=== PATIENT | female | born 2000 | race African-American/Black ===

== ENCOUNTER 2022-10-17 12:32 | Emergency (ER) | payer MEDICAID ==
[~2022-10-17] VITALS: Ht 162.6 cm; Wt 47.5 kg
[2022-10-17 12:49] VITALS: O2SAT 100
[2022-10-17] MEDS ORDERED: ONDANSETRON HCL 4MG TABLET PO ONE (14:15)
[2022-10-17] MEDS ORDERED: ACETAMINOPHEN 325MG TABLET PO ONE (14:15)
[2022-10-17 15:04] LABS: BASOPHILS % 0.3 % (0.0-2.0); EOSINOPHILS % 0.4 % (0.0-5.0); HEMATOCRIT. 42.1 % (36.0-48.0); HEMOGLOBIN. 13.6 g/dL (12.0-16.0); LYMPHOCYTES % 21.3 % (20.0-50.0); MEAN CORPUSCULAR HEMOGLOBIN 29.8 pg (28.0-32.0); MEAN CORPUSCULAR HGB CONC 32.2 g/dL (31.0-37.0); MEAN CORPUSCULAR VOLUME 92.3 fL (81.0-99.0); MEAN PLATELET VOLUME 9.1 fl (7.4-10.4); MONOCYTES % 8.3 % (2.0-8.0); NEUTROPHILS % 69.7 % (40.0-76.0); PLATELET 324 x1000/uL (130-400); RED BLOOD CELL COUNT 4.56 mill/uL (4.2-5.4); RED CELL DISTRIBUTION WIDTH 14.2 % (11.6-14.6); WHITE BLOOD COUNT 7.4 x1000/uL (4.5-11.0)
[2022-10-17 15:13] LABS: CALCIUM 9.3 mg/dL (8.5-10.1); CHLORIDE 108 mEq/L (98-107); INDEX HEMOLYSI 1 (1-3); INDEX ICTERIC 1 (1-4); INDEX LIPEMIC 1 (1-3); POTASSIUM 4.5 mEq/L (3.5-5.1); SODIUM 136 mEq/L (136-145)
[2022-10-17] MEDS ORDERED: NAPR-1176 MT (15:15)
[2022-10-17 15:19] LABS: ALANINE AMINOTRANSFERASE 18 IU/L (13-61); ALBUMIN 4.2 g/dL (3.4-5.0); ASPARTATE AMINOTRANSFERASE 11 IU/L (15-37); CARBON DIOXIDE 25 mEq/L (21-32); CREATININE 0.8 mg/dL (0.6-1.3); GLUCOSE 95 mg/dL (70-105); PROTEIN TOTAL 8.3 g/dL (6.0-8.3); UREA NITROGEN BLOOD 12 mg/dL (7-21)
[2022-10-17 15:42] LABS: CLARITY URINE CLEAR (CLEAR); COLOR URINE DARK YELLOW (YELLOW); GLUCOSE URINE NEGATIVE (NEGATIVE); KETONES URINE 4+ (NEGATIVE); LEUKOCYTE ESTERASE URINE TRACE (NEGATIVE); NITRITE URINE NEGATIVE (NEGATIVE); OCCULT BLOOD URINE 3+ (NEGATIVE); PH URINE 6.5 (4.5-8.0); PROTEIN URINE 1+ (NEGATIVE); SPECIFIC GRAVITY URINE 1.036 (1.005-1.030)
[2022-10-17 15:45] LABS: SQUAMOUS EPITHELIAL CELL URINE 1+ /lpf (RARE/1+); YEAST URINE NONE SEEN
[2022-10-17 15:49] VITALS: BP 128/75; PULSE 76; RESP 18; TEMP 98.3
[2022-10-17 16:20] LABS: BACTERIA URINE 1+; MUCUS URINE 1+ /lpf (< = 2+); RBC URINE 50-100 /hpf (0-2); WBC URINE 0-2 /hpf (0-2)
== END 2022-10-17 15:49 | disposition home or self-care (01) ==
LOC: ER 12:32
DX: N94.6 Dysmenorrhea, unspecified (principal); R07.89 Other chest pain
CPT/HCPCS: 99283; 80053; 81003; 81025; 85025; 36415; Q0162

== ENCOUNTER 2023-02-26 11:00 | Emergency (ER) | payer MEDICAID, OTHER ==
[~2023-02-26] VITALS: Ht 162.6 cm; Wt 52.0 kg
[~2023-02-26 11:00] MED LIST: NAPR-1176 MT
[2023-02-26 11:03] VITALS: BP 113/64; PULSE 67; RESP 18; TEMP 97.8; O2SAT 99
[2023-02-26 13:16] LABS: CLARITY URINE CLOUDY (CLEAR); COLOR URINE YELLOW (YELLOW); GLUCOSE URINE NEGATIVE (NEGATIVE); KETONES URINE NEGATIVE (NEGATIVE); LEUKOCYTE ESTERASE URINE TRACE (NEGATIVE); NITRITE URINE NEGATIVE (NEGATIVE); OCCULT BLOOD URINE 1+ (NEGATIVE); PH URINE 6.5 (4.5-8.0); PROTEIN URINE NEGATIVE (NEGATIVE); SPECIFIC GRAVITY URINE 1.014 (1.005-1.030); UROBILINOGEN URINE 0.2 E.U./dL (0.2-1.0)
[2023-02-26 13:46] LABS: BACTERIA URINE 2+; SQUAMOUS EPITHELIAL CELL URINE 3+ /lpf (RARE/1+); WBC URINE 0-2 /hpf (0-2)
[2023-02-26 13:47] LABS: RBC URINE 0-2 /hpf (0-2)
== END 2023-02-26 14:08 | disposition home or self-care (01) ==
LOC: ER 11:00
DX: B34.9 Viral infection, unspecified (principal); Z20.822 Contact with and (suspected) exposure to COVID-19
CPT/HCPCS: 99283; 87426; 81003; 81025; 87804 ×2; C9803

== ENCOUNTER 2023-05-16 08:14 | Emergency (ER) | payer OTHER ==
[~2023-05-16] VITALS: Ht 162.6 cm; Wt 54.0 kg
[2023-05-16 08:22] VITALS: O2SAT 98
[2023-05-16 08:45] LABS: BASOPHILS % 0.4 % (0.0-2.0); EOSINOPHILS % 0.2 % (0.0-5.0); HEMATOCRIT. 39.7 % (36.0-48.0); HEMOGLOBIN. 12.9 g/dL (12.0-16.0); MEAN CORPUSCULAR HEMOGLOBIN 29.4 pg (28.0-32.0); MEAN CORPUSCULAR HGB CONC 32.6 g/dL (31.0-37.0); MEAN CORPUSCULAR VOLUME 90.2 fL (81.0-99.0); NEUTROPHILS % 80.4 % (40.0-76.0); PLATELET 321 x1000/uL (130-400); RED CELL DISTRIBUTION WIDTH 14.8 % (11.6-14.6); WHITE BLOOD COUNT 6.4 x1000/uL (4.5-11.0)
[2023-05-16 09:01] LABS: ALANINE AMINOTRANSFERASE 10 IU/L (10-49); ALBUMIN 4.6 g/dL (3.2-4.8); ASPARTATE AMINOTRANSFERASE 15 IU/L (<34); BILIRUBIN TOTAL 0.9 mg/dL (0.1-1.0); CALCIUM 9.2 mg/dL (8.7-10.4); CARBON DIOXIDE 23 mEq/L (21-32); CHLORIDE 109 mEq/L (98-107); CREATININE 0.8 mg/dL (0.6-1.0); GLUCOSE 128 mg/dL (70-105); POTASSIUM 3.9 mEq/L (3.5-5.1); PROTEIN TOTAL 7.9 g/dL (6.0-8.3); SODIUM 138 mEq/L (136-145); UREA NITROGEN BLOOD 8 mg/dL (9-23)
[2023-05-16 09:18] LABS: HCG SCREEN NEGATIVE
[2023-05-16] MEDS: ACETAMINOPHEN 500MG TABLET PO NR (09:21)
[2023-05-16] MEDS: ONDANSETRON 4MG ODT PO NR (09:22)
[2023-05-16 09:44] LABS: CLARITY URINE CLEAR (CLEAR); COLOR URINE DARK YELLOW (YELLOW); GLUCOSE URINE NEGATIVE (NEGATIVE); KETONES URINE 3+ (NEGATIVE); LEUKOCYTE ESTERASE URINE TRACE (NEGATIVE); NITRITE URINE NEGATIVE (NEGATIVE); OCCULT BLOOD URINE 3+ (NEGATIVE); PROTEIN URINE 1+ (NEGATIVE); SPECIFIC GRAVITY URINE 1.028 (1.005-1.030)
[2023-05-16] MEDS: KETOROLAC 30MG/ML VIAL IM NR (09:53)
[2023-05-16 09:58] LABS: MUCUS URINE 1+ /lpf (< = 2+); SQUAMOUS EPITHELIAL CELL URINE 1+ /lpf (RARE/1+)
[2023-05-16 09:59] LABS: BACTERIA URINE TRACE; RBC URINE 50-100 /hpf (0-2)
[2023-05-16] MEDS: SODIUM CHLORIDE 0.9% 1,000 ML IV ONE (11:37)
[2023-05-16] MEDS: FAMOTIDINE 20MG/2ML VIAL IV ONE (11:37)
[2023-05-16] MEDS: METOCLOPRAMIDE HCL 10MG/2ML VIAL IV ONE (11:37)
[2023-05-16] MEDS ORDERED: NAPR-1176 MT (12:10)
[2023-05-16 12:16] VITALS: BP 122/88; PULSE 71; RESP 13; TEMP 98.2
== END 2023-05-16 12:17 | disposition home or self-care (01) ==
LOC: ER 08:14
DX: N94.6 Dysmenorrhea, unspecified (principal)
CPT/HCPCS: 99284; 96374; 96375; 80053; 81003; 81025; 84703; 83690; 85025; 36415; 96372; Q0162; J3490; J1885; J2765; J7030

== ENCOUNTER 2023-12-06 09:44 | Emergency (ER) | payer MEDICAID, OTHER ==
[~2023-12-06] VITALS: Ht 162.6 cm; Wt 55.0 kg
[2023-12-06 10:13] VITALS: BP 115/59; PULSE 67; RESP 16; TEMP 98.5; O2SAT 100
== END 2023-12-06 14:18 | disposition left against medical advice (07) ==
LOC: ER 09:44
DX: R10.31 Right lower quadrant pain (principal); Z53.21 Procedure and treatment not carried out due to patient leaving prior to being seen by health care provider

== ENCOUNTER 2024-02-04 10:46 | Emergency (ER) | payer OTHER ==
[~2024-02-04] VITALS: Ht 162.6 cm; Wt 54.4 kg
[2024-02-04 10:51] VITALS: O2SAT 98
[2024-02-04 10:53] VITALS: BP 116/75; PULSE 86; RESP 16; TEMP 36.61404; O2SAT 98
[2024-02-04 11:42] VITALS: TEMP 97.9
[2024-02-04] MEDS: ACETAMINOPHEN 325MG TABLET PO ONE (11:42)
[2024-02-04] MEDS ORDERED: NAPR-681 MT (11:55)
== END 2024-02-04 13:07 | disposition home or self-care (01) ==
LOC: ER 10:46
DX: M79.645 Pain in left finger(s) (principal); Y04.0XXA Assault by unarmed brawl or fight, initial encounter; Y93.89 Activity, other specified; Y92.89 Other specified places as the place of occurrence of the external cause; Y99.8 Other external cause status
CPT/HCPCS: 29130; 73130; 81025; 99283

== ENCOUNTER 2024-03-20 19:17 | Emergency (ER) | payer SELFPAY ==
[~2024-03-20] VITALS: Ht 162.6 cm; Wt 56.6 kg
[~2024-03-20 19:17] MED LIST changes: +NAPR-681 MT
[2024-03-20 19:23] VITALS: BP 119/80; RESP 16; TEMP 98.1; O2SAT 99
[2024-03-20 19:29] VITALS: PULSE 88; O2SAT 100
== END 2024-03-20 22:35 | disposition left against medical advice (07) ==
LOC: ER 19:17
DX: R11.10 Vomiting, unspecified (principal); Z53.21 Procedure and treatment not carried out due to patient leaving prior to being seen by health care provider

== ENCOUNTER 2024-04-15 17:05 | Emergency (ER) | payer MEDICAID ==
[~2024-04-15] VITALS: Ht 162.6 cm; Wt 54.4 kg
[2024-04-15 17:09] VITALS: BP 130/97; TEMP 36.8; O2SAT 100
[2024-04-15 17:16] VITALS: PULSE 95; RESP 16; O2SAT 100
[2024-04-15] MEDS ORDERED: NAPR-681 MT (19:06)
[2024-04-15] MEDS ORDERED: ONDA-239 PO (19:06)
[2024-04-16] MEDS ORDERED: ONDA4TAB50 MT (10:41)
[2024-04-16] MEDS ORDERED: ACET-2708 MT (10:41)
== END 2024-04-15 19:53 | disposition home or self-care (01) ==
LOC: ER 17:05
DX: F12.90 Cannabis use, unspecified, uncomplicated (principal); Z79.899 Other long term (current) drug therapy; Z79.1 Long term (current) use of non-steroidal anti-inflammatories (NSAID)
CPT/HCPCS: 81025; 99282; 99283

== ENCOUNTER 2024-04-16 08:06 | Emergency (ER) | payer MEDICAID ==
[~2024-04-16] VITALS: Ht 162.6 cm; Wt 52.0 kg
[~2024-04-16 08:06] MED LIST changes: +ONDA-239 PO
[2024-04-16 08:11] VITALS: TEMP 36.9; O2SAT 99
[2024-04-16 08:56] LABS: BASOPHILS % 0.2 % (0.0-2.0); HEMATOCRIT. 38.9 % (36.0-48.0); HEMOGLOBIN. 12.9 g/dL (12.0-16.0); LYMPHOCYTES % 18.3 % (20.0-50.0); MEAN CORPUSCULAR HEMOGLOBIN 29.7 pg (28.0-32.0); MEAN CORPUSCULAR HGB CONC 33.2 g/dL (31.0-37.0); MEAN CORPUSCULAR VOLUME 89.4 fL (81.0-99.0); MONOCYTES % 7.3 % (2.0-8.0); NEUTROPHILS % 74.2 % (40.0-76.0); PLATELET 287 x1000/uL (130-400); RED BLOOD CELL COUNT 4.35 mill/uL (4.2-5.4); RED CELL DISTRIBUTION WIDTH 16.1 % (11.6-14.6); WHITE BLOOD COUNT 8.9 x1000/uL (4.5-11.0)
[2024-04-16 09:02] LABS: CHLORIDE 109 mEq/L (98-107); POTASSIUM 3.4 mEq/L (3.5-5.1); SODIUM 143 mEq/L (136-145)
[2024-04-16 09:03] LABS: CALCIUM 9.6 mg/dL (8.7-10.4); CARBON DIOXIDE 24 mEq/L (21-32)
[2024-04-16 09:08] LABS: CREATININE 0.9 mg/dL (0.6-1.0); GLUCOSE 122 mg/dL (70-105); UREA NITROGEN BLOOD 8 mg/dL (9-23)
[2024-04-16 09:10] LABS: ALANINE AMINOTRANSFERASE 9 IU/L (10-49); ALBUMIN 4.4 g/dL (3.2-4.8); ASPARTATE AMINOTRANSFERASE 14 IU/L (<34); BILIRUBIN DIRECT 0.3 mg/dL (<=3.0); BILIRUBIN TOTAL 0.9 mg/dL (0.1-1.0); PROTEIN TOTAL 7.6 g/dL (6.0-8.3)
[2024-04-16 09:25] VITALS: O2SAT 99
[2024-04-16 09:27] VITALS: BP 125/83; PULSE 73; RESP 16
[2024-04-16] MEDS: ONDANSETRON HCL 4MG/2ML INJ IM ONE (09:27)
[2024-04-16] MEDS: KETOROLAC 30MG/ML VIAL IM ONE (09:27)
[2024-04-16 09:58] LABS: HCG SCREEN NEGATIVE
[2024-04-16 10:05] LABS: CLARITY URINE SL HAZY (CLEAR); COLOR URINE YELLOW (YELLOW); SPECIFIC GRAVITY URINE >=1.030 (1.005-1.030)
[2024-04-16 10:06] LABS: GLUCOSE URINE NEGATIVE (NEGATIVE); KETONES URINE 3+ (NEGATIVE); NITRITE URINE NEGATIVE (NEGATIVE); OCCULT BLOOD URINE 3+ (NEGATIVE); PROTEIN URINE 1+ (NEGATIVE); UROBILINOGEN URINE 0.2 E.U./dL (0.2-1.0)
[2024-04-16 10:07] LABS: LEUKOCYTE ESTERASE URINE NEGATIVE (NEGATIVE)
[2024-04-16 10:30] LABS: BACTERIA URINE 1+; MUCUS URINE 3+ /lpf (< = 2+); RBC URINE 50-100 /hpf (0-2); SQUAMOUS EPITHELIAL CELL URINE 3+ /lpf (RARE/1+); YEAST URINE NONE SEEN
[2024-04-16] MEDS ORDERED: ONDA4TAB50 MT (10:41)
[2024-04-16] MEDS ORDERED: ACET-2708 MT (10:41)
== END 2024-04-16 10:52 | disposition home or self-care (01) ==
LOC: ER 08:15
DX: N94.6 Dysmenorrhea, unspecified (principal); R11.2 Nausea with vomiting, unspecified; E86.0 Dehydration; Z79.1 Long term (current) use of non-steroidal anti-inflammatories (NSAID); Z79.899 Other long term (current) drug therapy
CPT/HCPCS: 99284; 80076; 80048; 81003; 81025; 84703; 83690; 85025; 36415; 96372; J1885; J2405

== ENCOUNTER 2024-07-28 18:04 | Emergency (ER) | payer MEDICAID ==
[~2024-07-28] VITALS: Ht 162.6 cm; Wt 54.4 kg
[~2024-07-28 18:04] MED LIST changes: +ACET-2708 MT; +ONDA4TAB50 MT
[2024-07-28 18:10] VITALS: O2SAT 100
[2024-07-28 18:38] LABS: HEMOGLOBIN. 12.6 g/dL (12.0-16.0); MEAN CORPUSCULAR HEMOGLOBIN 29.2 pg (28.0-32.0); MEAN CORPUSCULAR HGB CONC 33.1 g/dL (31.0-37.0); MEAN CORPUSCULAR VOLUME 88.3 fL (81.0-99.0); MEAN PLATELET VOLUME 9.4 fl (7.4-10.4); PLATELET 269 x1000/uL (130-400); RED CELL DISTRIBUTION WIDTH 15.3 % (11.6-14.6); WHITE BLOOD COUNT 8.9 x1000/uL (4.5-11.0)
[2024-07-28 18:39] LABS: DIFFERENTIAL COMMENT 1
[2024-07-28 18:57] LABS: CHLORIDE 107 mEq/L (98-107); POTASSIUM 3.7 mEq/L (3.5-5.1); SODIUM 139 mEq/L (136-145)
[2024-07-28 18:58] LABS: CARBON DIOXIDE 22 mEq/L (21-32)
[2024-07-28 18:59] LABS: CALCIUM 9.3 mg/dL (8.7-10.4)
[2024-07-28 19:03] LABS: CREATININE 0.9 mg/dL (0.6-1.0); GLUCOSE 137 mg/dL (70-105)
[2024-07-28 19:04] LABS: UREA NITROGEN BLOOD 7 mg/dL (9-23)
[2024-07-28 19:26] LABS: HCG SCREEN NEGATIVE
[2024-07-28] MEDS: KETOROLAC 15MG/ML VIAL IV ONE (19:28)
[2024-07-28] MEDS: ONDANSETRON HCL 4MG/2ML INJ IV STA (19:28)
[2024-07-28] MEDS: SODIUM CHLORIDE 0.9% 500 ML IV ONE (19:29)
[2024-07-28 19:34] LABS: ANISOCYTOSIS 1+; PLATELET ESTIMATE NORMAL
[2024-07-28] MEDS: METOCLOPRAMIDE HCL 10MG/2ML VIAL IV ONE (20:46)
[2024-07-28] MEDS: ACETAMINOPHEN 325MG TABLET PO ONE (20:47)
[2024-07-28] MEDS ORDERED: NAPR-681 MT (21:59)
[2024-07-28] MEDS ORDERED: ONDA4TAB50 MT (21:59)
[2024-07-28 22:12] LABS: CLARITY URINE CLEAR (CLEAR); COLOR URINE YELLOW (YELLOW); GLUCOSE URINE NEGATIVE (NEGATIVE); KETONES URINE NEGATIVE (NEGATIVE); LEUKOCYTE ESTERASE URINE NEGATIVE (NEGATIVE); NITRITE URINE NEGATIVE (NEGATIVE); OCCULT BLOOD URINE 2+ (NEGATIVE); PH URINE 7.5 (4.5-8.0); PROTEIN URINE NEGATIVE (NEGATIVE); SPECIFIC GRAVITY URINE 1.001 (1.005-1.030); UROBILINOGEN URINE 0.2 E.U./dL (0.2-1.0)
[2024-07-28 22:18] LABS: UCG KIT EXPIRATION DATE 11/27/2026; UCG KIT LOT# 946166; UCG SCREEN NEGATIVE
[2024-07-28 22:20] VITALS: BP 112/61; PULSE 65; RESP 16; TEMP 37.1; O2SAT 99
[2024-07-28 22:33] LABS: WBC URINE 0-2 /hpf (0-2)
[2024-07-28 22:34] LABS: BACTERIA URINE 1+; SQUAMOUS EPITHELIAL CELL URINE 1+ /lpf (RARE/1+)
== END 2024-07-28 22:28 | disposition home or self-care (01) ==
LOC: ER 18:04
DX: N94.6 Dysmenorrhea, unspecified (principal); R11.2 Nausea with vomiting, unspecified; Z79.1 Long term (current) use of non-steroidal anti-inflammatories (NSAID); Z79.899 Other long term (current) drug therapy
CPT/HCPCS: 80048; 81003; 81025; 84703; 85025; 36415; 96361; 96374; 96375; 99284; J1885; J2765; J2405; J7030; Z7610 ×3